=== PATIENT | male | born 1985 | race Asian ===

== ENCOUNTER → 2017-06-17 | Outpatient (CLI) | payer OTHER ==
[~2017-06-17] VITALS: Ht 167.6 cm; Wt 68.5 kg
[~2017-06-17] MED LIST: LORA10TA7 PO; NOCURR; TIOT4MIS3 PO
[2017-06-17 13:31] VITALS: BP 131/67
== END | disposition home or self-care (01) ==
LOC: SRCNTR 13:31
PROVIDERS: ATTEND Internal Medicine
DX: J45.909 Unspecified asthma, uncomplicated (principal); D72.1 Eosinophilia
CPT/HCPCS: G0463